=== PATIENT | female | born 1970 | race American Indian/Alaskan Native ===

== ENCOUNTER 2018-12-11 07:43 | Emergency (ER) | payer OTHER ==
--- NOTE | 2018-12-11 08:19 | Emergency Department Report ---
HPI - General Chief Complaint: Extremity Injury, Lower Time Seen by Provider: 12/11/18 07:59 - HPI HPI: 48-year-old -Citizen Of [place] female presents to the emergency department with a complaint of left ankle pain. The patient was working out this morning when she rolled her ankle. She had severe pain and was unable to ambulate or bear weight. She arrives via EMS and received 5 mg of morphine IV in route. She has a past medical history of hypertension. ED Past Medical Hx - Past Medical History Previous Medical History?: Yes Hx Hypertension: Yes - Surgical History Past Surgical History?: Yes Additional Surgical History: hysterectomy. Csection - Social History Smoking Status: Never Smoker - Medications Home Medications: Home Medications Medication Instructions Recorded Confirmed Last Taken Type HYDROcodone/APAP 5-325 [[place] 1 each PO Q6HR PRN #20 tablet 12/11/18 Unknown Rx 5/325] ED Review of Systems ROS: Stated complaint: (L) ANKLE INJURED Other details as noted in HPI Comment: All other systems reviewed and negative Constitutional: denies: chills, fever Musculoskeletal: joint swelling, arthralgia Skin: denies: rash, lesions Neurological: denies: numbness, paresthesias Physical Exam - Physical Exam Vital Signs: Vital Signs 12/11/18 07:49 Temperature 98.7 F Pulse Rate 104 H Respiratory 16 Rate Blood Pressure 130/80 O2 Sat by Pulse 98 Oximetry Physical Exam: GENERAL: The patient is well-developed well-nourished. HENT: Normocephalic. Atraumatic. Patient has moist mucous membranes. EYES: Extraocular motions are intact. NECK: Supple. Trachea is midline. CHEST/LUNGS: Clear to auscultation. There is no respiratory distress noted. HEART/CARDIOVASCULAR: Regular. There is no tachycardia. There is no murmur. ABDOMEN: Abdomen is soft, nontender. Patient has normal bowel sounds. There is no abdominal distention. SKIN: There is some circumferential left ankle and distal tib-fib nonpitting swelling. NEURO: The patient is awake, alert, and oriented. The patient is cooperative. The patient has no focal neurologic deficits. Normal speech. MUSCULOSKELETAL: Tenderness to palpation to the left ankle. There is decreased range of motion of the left foot and ankle secondary to pain and swelling. Left dorsalis pedis pulse +2 over 4. Capillary refill less than 2 seconds. ED Course Vital Signs 12/11/18 07:49 Temperature 98.7 F Pulse Rate 104 H Respiratory 16 Rate Blood Pressure 130/80 O2 Sat by Pulse 98 Oximetry - Consultations Consultation #1: I spoke to the orthopedist senior consultant, Dr. Jones, who recommended trying to reduce the mild talus dislocation and provide better alignment of the fracture prior to splinting and outpatient follow-up. 12/11/18 13:33 - Moderate Sedation Indications: fracture/dislocation redu ASA Class: I Mallampati Airway Score: 1 Time of Last PO Intake: 22:00 (last night) Preparation: cardiac cath technologist applied, pulse oximeter, capnometry used, supplemental O2 applied, reversal agents at bedside, suction/airway equipment at bedside, IV secured Ketamine: IV Ketamine Dose: 40 IV Propofol Dose (mgs): 40 Complications: none Patient Tolerated Procedure: well - Orthopedic Fracture Reduction Fracture #1 Consent Obtained: written consent Time Out Performed: Yes Side: left Fracture Reduction Location: tibia, fibula Analgesia: moderate sedation Technique: direct manipulation, traction/counter-traction Post-Reduction Neuro Exam: intact Post-Reduction Vascular Exam: intact Splint Applied: Yes Patient Tolerated Procedure: well ED Medical Decision Making - Radiology Data Radiology results: image reviewed interpreted by me: X-ray of the left ankle shows a bimalleolar fracture. Was read by radiology as well as showing a 1 cm anterior lateral talus displacement/dislocation. - Medical Decision Making This patient presents with left ankle pain after rolling the ankle while working out. X-ray shows a bimalleolar fracture and it was read by radiology as there being a anterior lateral displacement of the talus from the ankle mortise. The orthopedist was contacted and recommended trying to reduce this prior to splint and outpatient follow-up. A moderate sedation was done and the patient was placed into a [place] splint while I manipulated the ankle joint. Postreduction x-ray shows better alignment of the fracture and a reduction of the talar dislocation. She is neurovascularly intact after the procedure and splint placement. She will be nonweightbearing to the left lower extremity using crutches. She has been given orthopedic referrals. She will return to the ER with any worsening of her symptoms or any acute distress. - Differential Diagnosis ankle fracture, ankle dislocation, ankle sprain Critical Care Time: No Critical care attestation.: If time is entered above; I have spent that time in minutes in the direct care of this critically ill patient, excluding procedure time. ED Disposition Clinical Impression: Bimalleolar ankle fracture Qualifiers: Encounter type: initial encounter Fracture type: closed Laterality: left Qualified Code(s): S82.842A - Displaced bimalleolar fracture of left lower leg, initial encounter for closed fracture Disposition: DC- TO HOME OR SELFCARE Is pt being admited?: No Condition: Stable Instructions: Ankle Fracture (ED) Additional Instructions: Please follow-up with an orthopedist in the next few days regarding your ankle fracture. Remain in the splint until follow-up with the orthopedist. The splint cannot get wet or it will dissolve. Remain nonweightbearing to the affected left ankle and use crutches. Return to the emergency Department with any worsening of your symptoms or any acute distress. You have been prescribed a medication that is sedating and therefore should not be taken prior to driving, working, and responsible for children and in no way should be mixed with alcohol of any quantity. Prescriptions: HYDROcodone/APAP 5-325 [[place] 5/325] 1 each PO Q6HR PRN #20 tablet PRN Reason: Pain Referrals: [facility] [Provider Group] - 3-5 Days ZAKI COVINGTON MD [Primary Care Provider] - 3-5 Days GENIA JONES MD [Staff Physician] - 3-5 Days Forms: Work/School Release Form(ED)
--- NOTE | 2018-12-11 08:39 | XRay Report ---
Left ankle, 3 views INDICATION: left ankle pain / injury. COMPARISON: None. IMPRESSION: There is diffuse soft tissue swelling. There is an oblique mildly displaced fracture in the distal fibula just proximal to the ankle joint. A transverse mildly displaced fracture is identi fied at the base of the medial malleolus. There is anterior lateral displacement of the talus by appr oximately 1 cm. The hindfoot is grossly intact otherwise. Consultation with orthopedics is ryan gilbert Signer Name: Tim Tobin Jr, MD Signed: 12/11/2018 8:35 AM Workstation Name: [id number]
[2018-12-11] MEDS ORDERED: MORPHINE IV ONE (08:48)
[2018-12-11] MEDS ORDERED: KETALAR IV ONE (09:32)
[2018-12-11] MEDS ORDERED: NACL 0.9% 1000 ML 1,000 ML IV ONE (09:32)
[2018-12-11] MEDS ORDERED: DIPRIVAN 10 MG/ML IV ONE ×2 (09:32→09:44)
[2018-12-11] MEDS ORDERED: KETALAR ONE ×2 (09:45→09:46)
[2018-12-11] MEDS ORDERED: NACL 0.9% 1000 ML 1,000 ML ONE (09:50)
--- NOTE | 2018-12-11 10:47 | XRay Report ---
Left ankle, 3 views INDICATION: Left ankle fracture, postreduction film. COMPARISON: Earlier today at 0812 hours IMPRESSION: The distal fibula and tibia fractures have been reduced and are in near anatomic alignme nt. The ankle mortise has been restored. Diffuse soft tissue swelling. A posterior splint has been a pplied which degrades bony detail. Signer Name: Tim Tobin Jr, MD Signed: 12/11/2018 10:43 AM Workstation Name: [id number]
[2018-12-11 11:40] VITALS: BP 135/69
== END 2018-12-11 11:14 | disposition home or self-care (01) ==
LOC: ED 07:43
DX: S82.842A Displaced bimalleolar fracture of left lower leg, initial encounter for closed fracture (principal); I10 Essential (primary) hypertension; Z90.710 Acquired absence of both cervix and uterus; Z79.899 Other long term (current) drug therapy; X50.0XXA Overexertion from strenuous movement or load, initial encounter; Y93.89 Activity, other specified; Y92.89 Other specified places as the place of occurrence of the external cause; Y99.8 Other external cause status
CPT/HCPCS: 27810; 73610; 96374; 99285; J2270; J2704; J7030